=== PATIENT | female | born 1970 | race African-American/Black ===

== ENCOUNTER 2019-06-14 08:22 | Emergency (ER) | payer OTHER ==
[~2019-06-14] VITALS: Ht 165.1 cm; Wt 53.3 kg
[2019-06-14 08:29] VITALS: Ht 165.1 cm; Wt 53.3 kg
[2019-06-14 09:43] LABS: BASOPHIL % 0.4 % (0-2)
[2019-06-14 09:57] LABS: CALCIUM 8.5 mg/dL (8.5-10.1); CARBON DIOXIDE 26.2 mmol/L (21-32); CHLORIDE SERUM 109 mmol/L (98-107); CREATININE SERUM 0.7 mg/dL (0.6-1.0); GFR1 > 60 mL/min; GLUCOSE SERUM 93 mg/dL (74-106); POTASSIUM SERUM 4.3 mmol/L (3.5-5.1); SODIUM SERUM 141 mmol/L (136-145)
[2019-06-14 10:02] LABS: ALKALINE PHOSPHATASE 56 U/L (46-116); ALT/SGPT 19 U/L (14-59); AST/SGOT 17 U/L (15-37); BILIRUBIN TOTAL 0.5 mg/dL (0.20-1.00)
[2019-06-14 10:03] LABS: ALBUMIN 3.2 g/dL (3.4-5.0)
[2019-06-14 10:21] LABS: PLATELET COUNT 262 x10^3mcL (130-400); RED CELL DISTRIBUTION WIDTH 13.6 % (11.5-14.5)
[2019-06-14 12:03] VITALS: BP 132/72
== END 2019-06-14 12:04 | disposition home or self-care (01) ==
LOC: ED
PROVIDERS: Emergency Medicine
DX: R07.89 Other chest pain (principal); N39.0 Urinary tract infection, site not specified; R20.2 Paresthesia of skin; R51 Headache
CPT/HCPCS: 36415; 85378; Q0092